=== PATIENT | male | born 1995 | race Two or more races ===

== ENCOUNTER → 2019-10-04 17:08 | Emergency (ER) | payer MEDICAID | END | disposition left against medical advice (07) | LOC: EMS 17:08 | DX: Z03.818 Encounter for observation for suspected exposure to other biological agents ruled out (principal); Z53.21 Procedure and treatment not carried out due to patient leaving prior to being seen by health care provider ==

== ENCOUNTER 2021-02-28 07:47 | Emergency (ER) | payer MEDICAID ==
[~2021-02-28] VITALS: Ht 185.4 cm; Wt 77.3 kg
[2021-02-28 08:06] VITALS: BP 130/84
[2021-02-28] MEDS ORDERED: CefTRIAXone SODIUM 1 GM/VIAL IM ONE (08:30)
[2021-02-28] MEDS ORDERED: LIDOCAINE/PF 1% 2 ML VIAL IM ONE ×2 (08:30)
[2021-02-28] MEDS ORDERED: AZITHROMYCIN 500 MG TABLET PO ONE (08:30)
[2021-02-28 08:36] LABS: APPEARANCE,URINE CLEAR (CLEAR); BILIRUBIN,URINE NEGATIVE (NEGATIVE); GLUCOSE, URINE (UA) NEGATIVE (NEGATIVE); KETONES,URINE NEGATIVE (NEGATIVE); LEUKOCYTE ESTERASE ,URINE NEGATIVE (NEGATIVE); NITRATE,URINE NEGATIVE (NEGATIVE); OCCULT BLOOD,URINE NEGATIVE (NEGATIVE); PROTEIN,URINE POS 1+ (NEGATIVE)
[2021-02-28 08:53] LABS: BACTERIA,URINE None Seen /HPF (None Seen); RBC,URINE 0-2 /HPF (0-2); WBC,URINE None Seen /HPF (0-5)
== END 2021-02-28 08:55 | disposition home or self-care (01) ==
LOC: EMS 07:47
DX: N47.1 Phimosis (principal); A63.8 Other specified predominantly sexually transmitted diseases; F12.90 Cannabis use, unspecified, uncomplicated; F17.210 Nicotine dependence, cigarettes, uncomplicated
CPT/HCPCS: 81001; 87491; 87591; 96372; 99283; J0696; J3490; Q9967

== ENCOUNTER 2021-03-05 16:18 | Emergency (ER) | payer MEDICAID ==
[~2021-03-05] VITALS: Ht 157.5 cm; Wt 59.1 kg
[2021-03-05 16:30] VITALS: BP 122/79
== END 2021-03-05 17:17 | disposition left against medical advice (07) ==
LOC: EMS 16:19
DX: N48.89 Other specified disorders of penis (principal); F17.210 Nicotine dependence, cigarettes, uncomplicated; F12.90 Cannabis use, unspecified, uncomplicated; Z88.8 Allergy status to other drugs, medicaments and biological substances
CPT/HCPCS: 99281; Z7502